=== PATIENT | female | born 1960 | race Two or more races ===

== ENCOUNTER 2017-01-03 16:54 | Emergency (ER) | payer OTHER ==
[2017-01-03 17:18] LABS: PH,URINE 6.5 (5.0-8.0); URINE BILIRUBIN NEGATIVE (NEGATIVE); URINE BLOOD NEGATIVE (NEGATIVE); URINE GLUCOSE (UA) NEGATIVE (NEGATIVE); URINE LEUKOCYTE ESTERASE NEGATIVE (NEGATIVE); URINE NITRITE NEGATIVE (NEGATIVE); URINE PROTEIN NEGATIVE (NEGATIVE); URINE UROBILINOGEN NORMAL (0-1 mg/dl)
[2017-01-03 17:23] LABS: URINE APPEARANCE CLEAR; URINE COLOR YELLOW
[2017-01-03] MEDS ORDERED: IBUPROFEN 600 MG TABLET ONE (17:39)
[2017-01-03] MEDS ORDERED: ACETAMINOPHEN 500 MG TABLET ONE (17:39)
--- NOTE | 2017-01-03 18:13 | RAD ---
01/03/2017 6:07 PM CHEST - 2 VIEWS History: Left lower back pain Comparison: 07/14/2015 Findings: Two views of the chest are obtained. The lungs are clear with out effusion or pneumothorax. The cardiomediastinal silhouette is unremarkable.. The osseous structures are intact.. IMPRESSION: No acute intrathoracic process.
== END 2017-01-03 18:54 | disposition home or self-care (01) ==
LOC: ED 16:54
DX: S39.92XA Unspecified injury of lower back, initial encounter (principal); X58.XXXA Exposure to other specified factors, initial encounter